=== PATIENT | female | born 1970 ===

== ENCOUNTER → 2022-08-02 08:00 | Outpatient (CLI) | payer OTHER ==
[~2022-08-02] VITALS: Ht 157.5 cm; Wt 50.8 kg
[~2022-08-02 08:00] MED LIST: DAILY VALUE1 EACH PO
== END | disposition home or self-care (01) ==
LOC: LAB 08:00 → ADM 08:15 → CIR.AMB 08-04 07:00 → EDSTATUS 08-04 08:15 → CIR.AMB 08-04 08:15 → LAB 09-07 13:12
PROVIDERS: ATTEND Obstetrics & Gynecology
DX: N75.0 Cyst of Bartholin's gland (principal); N75.8 Other diseases of Bartholin's gland